=== PATIENT | male | born 1980 | race Caucasian/White ===

== ENCOUNTER 2021-08-31 15:47 | Emergency (ER) | payer OTHER ==
[2021-08-31 16:16] LABS: BILIRUBIN,URINE NEGATIVE (NEGATIVE); GLUCOSE, URINE (UA) NEGATIVE (NEGATIVE); KETONES,URINE (UA) NEGATIVE (NEGATIVE); LEUKOCYTE ESTERASE, URINE NEGATIVE (NEGATIVE); NITRITE,URINE NEGATIVE (NEGATIVE); OCCULT BLOOD,URINE NEGATIVE (NEGATIVE); PROTEIN,URINE NEGATIVE (NEGATIVE); UROBILINOGEN,URINE 0.2 (NORMAL) E.U./dL (NORMAL)
[2021-08-31 16:19] LABS: CLARITY,URINE CLEAR (CLEAR)
[2021-08-31 16:21] LABS: BASOPHILS % (AUTO) 0.4 %; EOSINOPHILS # (AUTO) 0.1 10^3/uL (0.0-0.7); EOSINOPHILS % (AUTO) 1.6 %; HGB - HEMOGLOBIN 14.5 g/dL (14.0-18.0); LYMPHOCYTES # (AUTO) 1.7 10^3/uL (1.5-3.5); LYMPHOCYTES % (AUTO) 35.4 %; MEAN CORPUSCULAR HEMOGLOBIN 30.5 pg (27.0-31.0); MEAN CORPUSCULAR HGB CONC 32.2 g/dL (32.0-36.0); MEAN CORPUSCULAR VOLUME 94.5 fL (80.0-94.0); MEAN PLATELET VOLUME 9.9 fL (7.4-11.4); MONOCYTES # (AUTO) 0.3 10^3/uL (0.0-1.0); MONOCYTES % (AUTO) 6.3 %; NEUTROPHILS # (AUTO) 2.8 10^3/uL (1.5-6.6); NEUTROPHILS % (AUTO) 56.1 %; PLT - PLATELET COUNT 175 10^3/uL (130-450); RED BLOOD COUNT 4.76 10^6/uL (4.70-6.10); RED CELL DISTRIBUTION WIDTH 12.9 % (12.0-15.0); WHITE BLOOD COUNT 4.9 x10^3/uL (4.8-10.8)
[2021-08-31 16:32] LABS: ALBUMIN 4.3 g/dL (3.2-5.5); ALBUMIN/GLOBULIN RATIO 1.5 (1.0-2.2); BILIRUBIN,TOTAL 0.6 mg/dL (0.2-1.0); CALCIUM 9.3 mg/dL (8.5-10.3); CREATININE 0.9 mg/dL (0.6-1.2); POTASSIUM 3.9 mmol/L (3.5-5.0); TOTAL PROTEIN 7.1 g/dL (6.7-8.2)
[2021-08-31] MEDS ORDERED: valACYclovir 500 MG TABLET PO STA (17:29)
--- NOTE | 2021-08-31 17:34 | ED Physician Documentation ---
History of Present Illness - Stated complaint Stated Complaint: ABD PAIN/MALE - Chief complaint Chief Complaint: Abd Pain - History obtained from History obtained from: Patient - History of Present Illness Timing: How many days ago (2) Pain level max: 5 Pain level now: 5 - Additonal information Additional information: 40-year-old male presents with 2 days of left-sided pain. The pain starts on the left flank and comes around to the anterior aspect of the left abdomen. Does not cross the midline. He states his skin feels tingly and is painful with light touch or with the shirt brushing against the skin. Has not noticed a rash. Has not had similar symptoms previously. Nothing makes it better. Worse with palpation. Does not have any diarrhea, constipation or hematuria. No urinary issues. He states that he does have a history of hemorrhoids, but these are not currently bothering him. Review of Systems Constitutional: denies: Fever, Chills GI: denies: Vomiting, Diarrhea Skin: denies: Rash Musculoskeletal: denies: Neck pain, Back pain PD PAST MEDICAL HISTORY - Past Medical History Past Medical History: No - Past Surgical History Past Surgical History: No - Present Medications Home Medications: Ambulatory Orders Medication Instructions Recorded Confirmed Valacyclovir HCl [Valtrex] 1,000 mg PO TID #21 tablet 08/31/21 - Allergies Allergies/Adverse Reactions: Allergies Allergy/AdvReac Type Severity Reaction Status Date / Time Sulfa (Sulfonamide Allergy Anaphylaxis Verified 08/31/21 16:00 Antibiotics) - Living Situation Living Situation: reports: With spouse/s.o., With family Living Arrangement: reports: At home - Social History Does the pt have substance abuse?: No - Family History Family history: reports: Non contributory PD ED PE NORMAL - Vitals Vital signs reviewed: Yes - General General: Alert and oriented X 3, No acute distress - HEENT HEENT: Moist mucous membranes - Neck Neck: Supple, no meningeal sign - Cardiac Cardiac: RRR - Respiratory Respiratory: No respiratory distress, Clear bilaterally - Abdomen Abdomen: Soft, Non tender, Non distended - Back Back: No CVA TTP - Derm Derm: Warm and dry, No rash - Neuro Neuro: Alert and oriented X 3 - Free text exam Free text exam: Patient is sensitive to light touch along the L2 dermatome. On the left side. No CVA tenderness. No abdominal tenderness. No rash. Results - Vitals Vitals: Vital Signs - 24 hr 08/31/21 08/31/21 16:01 18:14 Temperature 37.3 C 36.8 C Heart Rate 92 70 Respiratory 18 18 Rate Blood Pressure 148/87 H 121/58 L O2 Saturation 100 99 Oxygen O2 Source Room air - Labs Labs: Laboratory Tests 08/31/21 08/31/21 08/31/21 16:10 16:16 16:16 WBC 4.9 RBC 4.76 Hgb 14.5 Hct 45.0 MCV 94.5 H MCH 30.5 MCHC 32.2 RDW 12.9 Plt Count 175 MPV 9.9 Neut # (Auto) 2.8 Lymph # (Auto) 1.7 [place] # (Auto) 0.3 Eos # (Auto) 0.1 Baso # (Auto) 0.0 Absolute Nucleated RBC 0.00 Nucleated RBC % 0.0 Sodium 142 Potassium 3.9 Chloride 103 Carbon Dioxide 29 Anion Gap 10.0 BUN 19 Creatinine 0.9 Estimated GFR (MDRD) 94 Glucose 87 Calcium 9.3 Total Bilirubin 0.6 AST 17 ALT 13 Alkaline Phosphatase 88 Total Protein 7.1 Albumin 4.3 Globulin 2.8 Albumin/Globulin Ratio 1.5 Lipase 38 Urine Color YELLOW Urine Clarity CLEAR Urine pH 6.0 Ur Specific [place] 1.025 Urine Protein NEGATIVE Urine Glucose (UA) NEGATIVE Urine Ketones NEGATIVE Urine Occult Blood NEGATIVE Urine Nitrite NEGATIVE Urine Bilirubin NEGATIVE Urine Urobilinogen 0.2 (NORMAL) Ur Leukocyte Esterase NEGATIVE Ur Microscopic Review NOT INDICATED Urine Culture Comments NOT INDICATED PD MEDICAL DECISION MAKING - ED course Complexity details: reviewed results, re-evaluated patient, considered differential, d/w patient ED course: Patient is well-appearing, nontoxic. Afebrile. Symptoms are consistent with shingles. The sensitivity is along a specific dermatome and does not cross midline. No rash visible as of yet. We will treat with Valtrex and have him follow-up closely with his doctor. Patient counseled regarding signs and symptoms for which I believe and urgent re-evaluation would be necessary. Patient with good understanding of and agreement to plan and is comfortable going home at this time This document was made in part using voice recognition software. While efforts are made to proofread this document, sound alike and grammatical errors may occur. Departure - Departure Disposition: 01 Home, Self Care Clinical Impression: Shingles Qualifiers: Herpes zoster complications: without complications Qualified Code(s): B02.9 - Zoster without complications Condition: Good Instructions: ED Shingles Follow-Up: your,doctor in 1 week [Other] Prescriptions: Valacyclovir HCl [Valtrex] 1,000 mg PO TID #21 tablet Comments: Your symptoms today are consistent with shingles. We will start you on valacyclovir. Your prescriptions were sent to [facility] in [place]. You may develop a rash over the next few days. Please return if you worsen. Discharge Date/Time: 08/31/21 18:14
[2021-08-31 18:16] VITALS: BP 121/58
== END 2021-08-31 18:14 | disposition home or self-care (01) ==
LOC: ED 15:47
DX: B02.9 Zoster without complications (principal)
CPT/HCPCS: 36415; 80053; 81003; 83690; 85025; 99282; 99283; A9270; 81001; 87086

== ENCOUNTER 2022-02-06 16:23 | Emergency (ER) | payer OTHER ==
[2022-02-06 16:36] VITALS: BP 132/68
[2022-02-06] MEDS ORDERED: valACYclovir 500 MG TABLET PO STA (18:46)
--- NOTE | 2022-02-06 18:48 | ED Physician Documentation ---
History of Present Illness - Stated complaint Stated Complaint: L SIDE PX - Chief complaint Chief Complaint: Wound - History obtained from History obtained from: Patient - History of Present Illness Timing: Today Pain level max: 4 Pain level now: 4 - Additonal information Additional information: Patient is a 41-year-old male who presents to the emergency department stating he has pain and tingling on the left side of his flank. Similar presentation to when he had shingles earlier this year. He does not yet have a rash. He states that it is painful to the touch. He states last time this happened valacyclovir resolved his symptoms quickly. No fevers. No chills. No cough. No congestion. No urinary symptoms. No nausea, vomiting, diarrhea, abdominal pain Review of Systems Constitutional: denies: Fever, Chills Respiratory: denies: Cough GI: denies: Vomiting, Diarrhea Skin: denies: Rash Musculoskeletal: denies: Neck pain, Back pain Neurologic: denies: Headache PD PAST MEDICAL HISTORY - Past Medical History Past Medical History: No - Past Surgical History Past Surgical History: No - Present Medications Home Medications: Ambulatory Orders Medication Instructions Recorded Confirmed Valacyclovir HCl [Valtrex] 1,000 mg PO TID #21 tablet 08/31/21 Valacyclovir HCl [Valtrex] 1,000 mg PO TID #21 tablet 02/06/22 - Allergies Allergies/Adverse Reactions: Allergies Allergy/AdvReac Type Severity Reaction Status Date / Time Sulfa (Sulfonamide Allergy Anaphylaxis Verified 02/06/22 16:36 Antibiotics) - Social History Does the pt smoke?: No Smoking Status: Never smoker Does the pt have substance abuse?: No PD ED PE NORMAL - Vitals Vital signs reviewed: Yes - General General: Alert and oriented X 3, No acute distress - HEENT HEENT: Moist mucous membranes - Neck Neck: Supple, no meningeal sign - Cardiac Cardiac: RRR - Respiratory Respiratory: No respiratory distress, Clear bilaterally - Abdomen Abdomen: Soft, Non tender, Non distended - Back Back: No CVA TTP - Derm Derm: Warm and dry, Other (No visible rash, he is sensitive to light touch and a single dermatome on the left side, approximately L1/L2 area.) - Neuro Neuro: Alert and oriented X 3 Results - Vitals Vitals: Oxygen O2 Source Room air PD MEDICAL DECISION MAKING - ED course Complexity details: considered differential, d/w patient ED course: Patient with symptoms similar to his prior presentation of shingles. We will trial him back on acyclovir/valacyclovir. He declines anything for pain. Patient is well-appearing, nontoxic. Afebrile. Abdomen is soft, nontender nondistended. If he does not improve as expected, we will pursue further work- up at that time. Patient counseled regarding signs and symptoms for which I believe and urgent re-evaluation would be necessary. Patient with good understanding of and agreement to plan and is comfortable going home at this time This document was made in part using voice recognition software. While efforts are made to proofread this document, sound alike and grammatical errors may occur. Departure - Departure Disposition: 01 Home, Self Care Clinical Impression: Shingles Qualifiers: Herpes zoster complications: without complications Qualified Code(s): B02.9 - Zoster without complications Condition: Good Instructions: ED Shingles Follow-Up: your,doctor in 1 week if not better [Other] Prescriptions: Valacyclovir HCl [Valtrex] 1,000 mg PO TID #21 tablet Comments: Your prescriptions were sent to [facility] in [place]. Please take all your Valtrex until gone. Please return if you worsen. Discharge Date/Time: 02/06/22 18:51
== END 2022-02-06 18:51 | disposition home or self-care (01) ==
LOC: ED 16:23
DX: B02.9 Zoster without complications (principal)
CPT/HCPCS: 99282; A9270

== ENCOUNTER 2023-11-02 11:54 | Outpatient (CLI) | payer OTHER ==
--- NOTE | 2023-11-02 21:26 | XRAY Report ---
PROCEDURE: Ribs w/PA Chest 3+V LT INDICATIONS: CONTUSION OF LEFT FRONT WALL OF THORAX TECHNIQUE: 2 views of the ribs were acquired, along with a single view chest. COMPARISON: None. FINDINGS: Surgical changes and devices: None. Bones and chest wall: No fractures or dislocations. No suspicious bony lesions. Overlying soft tis sues appear unremarkable. Lungs and pleura: No pleural effusions or pneumothorax. Lungs appear clear. Mediastinum: Mediastinal contours appear normal. Heart size is normal. IMPRESSION: No visualized acute fracture or dislocation. However, occult injury cannot be excluded. Recommend kelly rt interval imaging follow-up in 7-10 days as clinically indicated for additional evaluation. Reviewed by: Kaitlin Webb MD on 11/02/2023 9:25 PM PDT Approved by: Kaitlin Webb MD on 11/02/2023 9:25 PM PDT Station ID: [id number]
== END 2023-11-02 23:59 | disposition home or self-care (01) ==
LOC: DI.N 11:54
PROVIDERS: ATTEND Physician Assistant
DX: S20.212A Contusion of left front wall of thorax, initial encounter (principal)